=== PATIENT | male | born 1990 | race American Indian/Alaskan Native ===

== ENCOUNTER 2022-02-16 14:27 | Emergency (ER) | payer OTHER | END 2022-02-16 15:00 | disposition home or self-care (01) | LOC: MERGE 14:27 → DL.ED 14:27 | DX: S66.811A Strain of other specified muscles, fascia and tendons at wrist and hand level, right hand, initial encounter (principal); X50.1XXA Overexertion from prolonged static or awkward postures, initial encounter | CPT/HCPCS: 73110-RT; 99282; 99283 ==

== ENCOUNTER 2023-10-30 11:36 | Emergency (ER) | payer MEDICAID, OTHER ==
[2023-10-30] MEDS: Oxymetazoline 0.05% Nasal Spray 30 ML Bottle NAS ONE (11:45)
[2023-10-30 12:00] LABS: BASOPHILS PERCENT AUTO 1.6 % (0.0-1.0); EOSINOPHILS PERCENT AUTO 3.7 % (1.0-3.0); HEMATOCRIT 45.1 % (40.0-54.0); HEMOGLOBIN 15.5 g/dL (14.0-18.0); LYMPHOCYTES PERCENT AUTO 25.9 % (20.5-50.1); MEAN CORPUSCULAR HEMOGLOBIN 30.4 pg (27.0-34.0); MEAN CORPUSCULAR HGB CONC 34.4 g/dL (33.0-35.0); MEAN CORPUSCULAR VOLUME 88.4 fL (80-100); MONOCYTES PERCENT AUTO 10.8 % (2-8); PLATELET COUNT,PLT 227 10^3/uL (150-450); WHITE BLOOD CELL COUNT,WBC 8.2 10^3/uL (5.0-10.0)
== END 2023-10-30 12:44 | disposition home or self-care (01) ==
LOC: DL.ED 11:36
DX: R04.0 Epistaxis (principal)
CPT/HCPCS: 36415; 85025; 85610; 99283; A9270

== ENCOUNTER 2024-02-18 12:13 | Emergency (ER) | payer OTHER, MEDICAID ==
[2024-02-18] MEDS ORDERED: Sodium Chloride 0.9% 10 ML Syringe FLUSH PRN (12:39)
[2024-02-18] MEDS: Morphine 2 MG/ML SYRINGE IVPUSH ONE (12:50)
[2024-02-18] MEDS: Albuterol/Ipratropium 3.0-0.5 MG/3 ML Neb Soln NEB ONE (12:51)
[2024-02-18 13:02] LABS: EOSINOPHILS PERCENT AUTO 4.7 % (1.0-3.0); HEMATOCRIT 46.3 % (40.0-54.0); HEMOGLOBIN 15.8 g/dL (14.0-18.0); LYMPHOCYTES PERCENT AUTO 22.9 % (20.5-50.1); MEAN CORPUSCULAR HEMOGLOBIN 29.6 pg (27.0-34.0); MEAN CORPUSCULAR HGB CONC 34.1 g/dL (33.0-35.0); MEAN CORPUSCULAR VOLUME 86.7 fL (80-100); MONOCYTES PERCENT AUTO 6.9 % (2-8); NEUTROPHILS PERCENT AUTO 63.5 % (42.2-75.2); PLATELET COUNT,PLT 250 10^3/uL (150-450); RED BLOOD CELL COUNT 5.34 10^6/uL (4.6-6.2); WHITE BLOOD CELL COUNT,WBC 7.9 10^3/uL (5.0-10.0)
[2024-02-18 13:06] LABS: APPEARANCE,URINE CLEAR (CLEAR); BILIRUBIN,URINE NEGATIVE (NEGATIVE); COLOR,URINE DARK YELLOW (YELLOW); GLUCOSE,URINE NEGATIVE (NEGATIVE); KETONES,URINE NEGATIVE (NEGATIVE); LEUKOCYTE ESTERASE,URINE NEGATIVE (NEGATIVE); NITRITE,URINE NEGATIVE (NEGATIVE); OCCULT BLOOD,URINE NEGATIVE (NEGATIVE); PROTEIN,URINE 30 (NEGATIVE); UROBILINOGEN,URINE 0.2 mg/dL (0.2-1.0)
[2024-02-18 13:22] LABS: LACTIC ACID 1.5 mmol/L (0.4-2.0)
[2024-02-18 13:29] LABS: A/G RATIO 1.1; ALBUMIN 4.3 g/dL (3.4-5.0); ANION GAP 14.6 mEq/L (7-13); BILIRUBIN TOTAL 0.7 mg/dL (0.2-1.0); BUN/CREATININE RATIO 11.6 (No establ ref range); C-REACTIVE PROTEIN 1.48 ng/dL (<=0.50); CALCIUM 9.4 mg/dL (8.5-10.1); CREATININE 0.86 mg/dL (0.70-1.30); EST CRCL DRUG DOSING (CG) 132.84 mL/min; POTASSIUM,K 3.6 mmol/L (3.5-5.1); PROTEIN TOTAL,TP 8.3 g/dL (6.4-8.2)
[2024-02-18 13:42] LABS: BACTERIA,URINE RARE /HPF (0-FEW/HPF); EPITHELIAL CELLS,URINE RARE /HPF (NOT SEEN); MUCUS,URINE MODERATE /LPF (NOT SEEN); RBC,URINE NOT SEEN /HPF (0-5); WBC,URINE 0-5 /HPF (0-5/HPF)
[2024-02-18] MEDS: methylPREDNISolone Sodium Succinate 125 MG/2 ML SDV IVPUSH ONE (13:50)
[2024-02-18] MEDS: Albuterol 6.7 GM Inhaler INH ONE (14:37)
== END 2024-02-18 14:52 | disposition home or self-care (01) ==
LOC: DL.ED 12:13
DX: J98.8 Other specified respiratory disorders (principal)
CPT/HCPCS: 36415; 71046; 80053; 81001; 83605; 83880; 85025; 85379; 86140; 87040; 87635; 87804; 94010; 94640; 94667; 96374; 96375; 99284; 99285; A9270; J2270; J2919; J7620-GY; U0002

== ENCOUNTER 2024-02-26 02:05 | Emergency (ER) | payer OTHER ==
[2024-02-26] MEDS ORDERED: Iopamidol 612 MG/ML 100 ML Bottle IVPUSH ONE (02:26)
[2024-02-26 02:31] LABS: EOSINOPHILS PERCENT AUTO 1.7 % (1.0-3.0); HEMATOCRIT 44.2 % (40.0-54.0); LYMPHOCYTES PERCENT AUTO 27.7 % (20.5-50.1); MEAN CORPUSCULAR HEMOGLOBIN 29.6 pg (27.0-34.0); MEAN CORPUSCULAR HGB CONC 33.9 g/dL (33.0-35.0); MEAN CORPUSCULAR VOLUME 87.4 fL (80-100); MONOCYTES PERCENT AUTO 6.6 % (2-8); PLATELET COUNT,PLT 361 10^3/uL (150-450); RED BLOOD CELL COUNT 5.06 10^6/uL (4.6-6.2); WHITE BLOOD CELL COUNT,WBC 10.2 10^3/uL (5.0-10.0)
[2024-02-26] MEDS: Ketorolac 30 MG/ML SDV IVPUSH ONE (02:33)
[2024-02-26] MEDS: Sodium Chloride 0.9% 1,000 ML IV ONE ×3 (02:34→03:39)
[2024-02-26 02:42] LABS: APPEARANCE,URINE CLEAR (CLEAR); BILIRUBIN,URINE NEGATIVE (NEGATIVE); COLOR,URINE YELLOW (YELLOW); GLUCOSE,URINE 500 (NEGATIVE); KETONES,URINE NEGATIVE (NEGATIVE); LEUKOCYTE ESTERASE,URINE NEGATIVE (NEGATIVE); NITRITE,URINE NEGATIVE (NEGATIVE); OCCULT BLOOD,URINE NEGATIVE (NEGATIVE); PROTEIN,URINE NEGATIVE (NEGATIVE)
[2024-02-26 02:44] LABS: AMPHETAMINES,URINE NEGATIVE (NEGATIVE); BARBITURATES,URINE NEGATIVE (NEGATIVE); BENZODIAZEPINE,URINE NEGATIVE (NEGATIVE); MDMA (ECSTASY), URINE NEGATIVE (NEGATIVE); METHADONE,URINE NEGATIVE (NEGATIVE); METHAMPHETAMINES,URINE NEGATIVE (NEGATIVE); OPIATES,URINE NEGATIVE (NEGATIVE); OXYCODONE,URINE NEGATIVE (NEGATIVE); PHENCYCLIDINE,URINE NEGATIVE (NEGATIVE); TCA,URINE NEGATIVE (NEGATIVE)
[2024-02-26 02:45] LABS: ALBUMIN 3.8 g/dL (3.4-5.0); ANION GAP 14.8 mEq/L (7-13); BILIRUBIN TOTAL 0.6 mg/dL (0.2-1.0); CALCIUM 8.6 mg/dL (8.5-10.1); CREATININE 1.07 mg/dL (0.70-1.30); EST CRCL DRUG DOSING (CG) 100.44 mL/min; MAGNESIUM 1.8 mg/dL (1.8-2.4); POTASSIUM,K 3.8 mmol/L (3.5-5.1); PROTEIN TOTAL,TP 7.6 g/dL (6.4-8.2)
[2024-02-26 02:46] LABS: LACTIC ACID 2.1 mmol/L (0.4-2.0)
[2024-02-26] MEDS: Iopamidol 755 Mg/ML 100 ML Bottle IVPUSH ONE (03:05)
[2024-02-26] MEDS: cefTRIAXone 1 GM Vial IVPUSH ONE (03:33)
[2024-02-26] MEDS: Ondansetron 4 MG/2 ML SDV IVPUSH ONE (04:10)
[2024-02-26] MEDS: Morphine 4 MG/ML Syringe IVPUSH ONE (04:12)
[2024-02-26] MEDS ORDERED: 50% Dextrose in Water 50 ML Syringe IVPUSH PRN (05:12)
[2024-02-26] MEDS ORDERED: Glucagon,Human Recombinant 1 MG Vial IM PRN (05:12)
[2024-02-26] MEDS: Insulin Regular, Human 100 Units/ML 3 ML Vial SUBCUT ONE (05:28)
== END 2024-02-26 05:53 ==
LOC: DL.ED 02:05
DX: U07.1 COVID-19 (principal); A41.9 Sepsis, unspecified organism; E11.9 Type 2 diabetes mellitus without complications; R74.01 Elevation of levels of liver transaminase levels
CPT/HCPCS: 36415; 71046; 71275; 74177; 80053; 80305-QW; 80307; 81003; 82947; 83605; 83690; 83735; 83880; 84484; 85025; 85379; 87040; 87804; 93005; 93010; 94762; 96361; 96374; 96375; 99285; 99285-25; J0696; J1815-GY; J1885; J2270; J2405; J7030; Q9967; U0002

== ENCOUNTER 2024-03-06 12:04 | Emergency (ER) | payer OTHER, MEDICAID ==
[2024-03-06] MEDS: Morphine 4 MG/ML Syringe IVPUSH STA (12:12)
[2024-03-06] MEDS: Ondansetron 4 MG/2 ML SDV IVPUSH ONE (12:12)
[2024-03-06 12:26] LABS: BASOPHILS PERCENT AUTO 0.5 % (0.0-1.0); EOSINOPHILS PERCENT AUTO 0.1 % (1.0-3.0); HEMATOCRIT 46.6 % (40.0-54.0); HEMOGLOBIN 15.4 g/dL (14.0-18.0); LYMPHOCYTES PERCENT AUTO 8.5 % (20.5-50.1); MEAN CORPUSCULAR HEMOGLOBIN 29.4 pg (27.0-34.0); MEAN CORPUSCULAR VOLUME 88.9 fL (80-100); MONOCYTES PERCENT AUTO 4.4 % (2-8); NEUTROPHILS PERCENT AUTO 86.5 % (42.2-75.2); PLATELET COUNT,PLT 355 10^3/uL (150-450); RED BLOOD CELL COUNT 5.24 10^6/uL (4.6-6.2); WHITE BLOOD CELL COUNT,WBC 12.5 10^3/uL (5.0-10.0)
[2024-03-06] MEDS ORDERED: Naloxone 2 MG/2 ML Syringe IVPUSH PRN (12:45)
[2024-03-06 12:49] LABS: A/G RATIO 1.1; ALANINE AMINOTRANSFERASE,ALT 433 U/L (16-63); ALBUMIN 4.2 g/dL (3.4-5.0); ALKALINE PHOSPHATASE 110 U/L (46-116); ANION GAP 15.6 mEq/L (7-13); ASPARTATE AMNIOTRANSFERASE,AST 267 U/L (15-37); BLOOD UREA NITROGEN,BUN 21 mg/dL (7-18); BUN/CREATININE RATIO 21.6 (No establ ref range); CALCIUM 9.5 mg/dL (8.5-10.1); CARBON DIOXIDE,CO2 23 mmol/L (21-32); CHLORIDE,CL 100 mmol/L (98-107); CREATININE 0.97 mg/dL (0.70-1.30); GLUCOSE RANDOM 210 mg/dL (70-99); MAGNESIUM 1.8 mg/dL (1.8-2.4); POTASSIUM,K 4.6 mmol/L (3.5-5.1); SODIUM,NA 134 mmol/L (136-145)
[2024-03-06 12:52] LABS: B-TYPE NATRIURETIC PEPTIDE,BNP 14 pg/ml (0-100)
[2024-03-06] MEDS: Morphine 4 MG/ML Syringe IVPUSH ONE (12:52)
[2024-03-06 12:53] LABS: PROTHROMBIN TIME 10.1 SEC (9.0-12.0); PTT,PARTIAL THROMBOPLSTIN TIME 23.8 SEC (22.0-34.0)
[2024-03-06] MEDS: Sodium Chloride 0.9% 1,000 ML IV SCH (12:53)
[2024-03-06] MEDS: Sodium Chloride 0.9% 10 ML Syringe FLUSH PRN (12:53)
[2024-03-06 13:01] LABS: ESTIMATED GFR 105 mL/min (>=60)
[2024-03-06] MEDS: Iopamidol 612 MG/ML 100 ML Bottle IVPUSH ONE (13:10)
[2024-03-06 13:36] LABS: LIPASE > 250 U/L (16-77)
[2024-03-06] MEDS: fentaNYL 100 MCG/2 ML SDV IVPUSH ONE (13:48)
== END 2024-03-06 14:05 | disposition home or self-care (01) ==
LOC: DL.ED 12:04
DX: S22.32XA Fracture of one rib, left side, initial encounter for closed fracture (principal); X50.1XXA Overexertion from prolonged static or awkward postures, initial encounter
CPT/HCPCS: 36415; 71260; 80053; 83690; 83735; 83880; 84484; 85025; 85610; 85730; 93005; 93010; 96374; 96375; 96376; 99284; 99284-25; J2270; J2405; J3010; J3490; J7030; Q9967